=== PATIENT | female | born 1975 | race Caucasian/White ===

== ENCOUNTER → 2018-07-08 21:43 | Emergency (ER) | payer OTHER ==
[2018-07-08 21:50] VITALS: BP 128/98
--- NOTE | 2018-07-08 23:16 | ED ---
Throat Pain/Nasal Congestion - HPI Summary HPI Summary: Patient is a 42 y/o F presenting to ED with complaints of an episode of seeing a bright flash of light at her left eye when she was bending over. Patient started taking Cipro two days ago and is concerned for retinal detachment as this is listed as a possible side effect from Cipro. Patient is currently asymptomatic. On triage, pain is denied, nothing is noted to aggravate/ alleviate Sx. Home medications and allergies are reviewed. - History of Current Complaint Chief Complaint: EDEyeProblem Time Seen by Provider: 07/08/18 22:56 Hx Obtained From: Patient Onset/Duration: Resolved Severity: Mild Associated Signs And Symptoms: Positive: Negative Cough: None - Allergies/Home Medications Allergies/Adverse Reactions: Allergies Allergy/AdvReac Type Severity Reaction Status Date / Time MS Sulfa Antibiotics Allergy Rash Verified 07/08/18 21:49 [Sulfa Antibiotics] PMH/Surg Hx/FS Hx/Imm Hx Respiratory History: Denies: Hx Asthma, Hx Chronic Obstructive Pulmonary Disease (COPD) History: Reports: Other Problems/Disorders - PHMX OF UTI - Cancer History Hx Chemotherapy: No Hx Radiation Therapy: No - Surgical History Surgery Procedure, Year, and Place: csection x2 Infectious Disease History: No Infectious Disease History: Denies: History Other Infectious Disease, Traveled Outside the [place] in Last 30 Days - Family History Known Family History: Negative: Cardiac Disease, Hypertension, Diabetes - Social History Alcohol Use: Occasionally Substance Use Type: Reports: None Smoking Status (MU): Never Smoked Tobacco Review of Systems Negative: Fever - on vitals, temp is 97.3 F Eyes: Other - POSITIVE - FLASH OF LIGHT AT LEFT EYE All Other Systems Reviewed And Are Negative: Yes Physical Exam - Summary Physical Exam Summary: VITAL SIGNS: Reviewed. GENERAL: Patient is a well-developed and nourished female who is lying comfortable in the stretcher. Patient is not in any acute respiratory distress. HEAD AND FACE: No signs of trauma. No ecchymosis, hematomas or skull depressions. No sinus tenderness. EYES: PERRLA, EOMI x 2, No injected conjunctiva, no nystagmus. Visual field acuity test was done, visual field intact using confrontation method. EARS: Hearing grossly intact. Ear canals and tympanic membranes are within normal limits. MOUTH: Oropharynx within normal limits. NECK: Supple, trachea is midline, no adenopathy, no JVD, no carotid bruit, no c- spine tenderness, neck with full ROM CHEST: Symmetric, no tenderness at palpation LUNGS: Clear to auscultation bilaterally. No wheezing or crackles. CVS: Regular rate and rhythm, S1 and S2 present, no murmurs or gallops appreciated. ABDOMEN: Soft, non-tender. No signs of distention. No rebound no guarding, and no masses palpated. Bowel sounds are normal. EXTREMITIES: FROM in all major joints, no edema, no cyanosis or clubbing. NEURO: Alert and oriented x 3. No acute neurological deficits. Speech is normal and follows commands. SKIN: Dry and warm Triage Information Reviewed: Yes Vital Signs On Initial Exam: Initial Vitals Temp Pulse Resp BP Pulse Ox 97.3 F 74 16 128/98 99 07/08/18 21:47 07/08/18 21:47 07/08/18 21:47 07/08/18 21:47 07/08/18 21:47 Vital Signs Reviewed: Yes Diagnostics - Vital Signs Vital Signs Temp Pulse Resp BP Pulse Ox 07/08/18 21:47 97.3 F 74 16 128/98 99 - Laboratory Lab Statement: Any lab studies that have been ordered have been reviewed, and results considered in the medical decision making process. EENT Course/Dx - Course Course Of Treatment: Patient is a 42 y/o F presenting to ED with complaints of an episode of seeing a bright flash of light at her left eye when she was bending over. Patient started taking Cipro two days ago and is concerned for retinal detachment as this is listed as a possible side effect from Cipro. Patient is currently asymptomatic. Visual field acuity test was done, visual field intact using confrontation method. Patient will be discharged to home with follow up with ophthamologist, she is agreeable with this. - Diagnoses Provider Diagnoses: Vision disturbance Discharge - Sign-Out/Discharge Documenting (check all that apply): Patient Departure - discharge Patient Received Moderate/Deep Sedation with Procedure: No - Discharge Plan Condition: Stable Disposition: HOME Patient Education Materials: Blurred Vision (ED) Referrals: Jack Higgins MD [Primary Care Provider] - Andrew Baker MD [Medical Doctor] - 2 Days Additional Instructions: PLEASE RETURN TO THE ED IMMEDIATELY FOR WORSENING OR CONCERNING SYMPTOMS. FOLLOW UP WITH CONSUMER PRODUCT ADVISOR IN TWO DAYS. - Attestation Statements Document Initiated by Scribe: Yes Documenting Scribe: YOSELIN DOZIER Provider For Whom Scribe is Documenting (Include Credential): CHUCKY ALLEN MD Scribe Attestation: IYOSELIN, scribed for CHUCKY ALLEN MD on 07/09/18 at 0215. Status of Scribe Document: Ready
== END | disposition home or self-care (01) ==
LOC: ED 21:43
DX: H53.9 Unspecified visual disturbance (principal); Z88.2 Allergy status to sulfonamides
CPT/HCPCS: 99282